=== PATIENT | female | born 1960 | race Caucasian/White ===

== ENCOUNTER → 2016-07-16 | Outpatient (CLI) | payer OTHER | LOC: CIMAGING 11:03 | DX: Z12.31 Encounter for screening mammogram for malignant neoplasm of breast (principal) | CPT/HCPCS: G0202 ==

== ENCOUNTER → 2016-07-16 | Outpatient (CLI) | payer OTHER | LOC: CIMAGING 14:43 | PROVIDERS: ATTEND Family Medicine | DX: M50.30 Other cervical disc degeneration, unspecified cervical region (principal) | CPT/HCPCS: 72040-PO ==

== ENCOUNTER → 2016-07-23 | Outpatient (CLI) | payer OTHER | LOC: CIMAGING 17:18 | PROVIDERS: ATTEND Physician Assistant Medical | DX: M54.5 Low back pain (principal); M54.32 Sciatica, left side | CPT/HCPCS: 72100-PO ==

== ENCOUNTER → 2018-08-02 | Outpatient (CLI) | payer OTHER | LOC: CIMAGING 13:38 | PROVIDERS: ATTEND Family Medicine | DX: M50.121 Cervical disc disorder at C4-C5 level with radiculopathy (principal); M47.22 Other spondylosis with radiculopathy, cervical region | CPT/HCPCS: 72050-PO ==